=== PATIENT | male | born 1965 | race Caucasian/White ===

== ENCOUNTER 2023-10-23 14:34 | Emergency (ER) | payer BC ==
--- OUTSIDE RECORDS SUMMARY | 2023-10-23 14:38 | XMS REPORT | Continuity of Care Document ---
Author Name Unknown Address [address] [facility] [address] [place] [address] [facility] thconnect Address [address] [place] [address] Care Team Providers Care Aviculturist Name Role Phone Sheron Diego NP Primary Care Physician Sheron Shetty Attending Clinician Unavailable Selbst DPM, Ching Cortes Attending Clinician [phone] CHING OWENS Attending Clinician Unavail able Payers Payer Name Policy Type Policy Number Effective Date Expirati on Date Source [employer] COMM [id number] 2022 00:00:00 Allergies, Adverse Reactions, Alerts Allergy Name Allergy Type Status Severity Reaction(s) Onset Date Inactive Date Treating Clinician Comments Source ALLERGIE S NOT ON FILE SYSTEMIC Active MHEOUT NO KNOWN ALLERGIE S SYSTEMIC Active MHEOUT Social History Social Habit Start Date Stop Date Quantity Comments Source Gender identity [facility] Sexual orientation [facility] Smoking Status Start Date Stop Date Source Tobacco smoking consumption unknown [facility] Encounters Start Date/Time End Date/Time Encounter Type Admission Type Attending Clinicians Care Facility Care Department Encounter ID Source 2023-10-21 10:36:[address] [facility] [id number] [facility] 2023-06-17 08:38[facility] [id number] [facility] 2022-08-02 10:46:[address] [facility] [id number] [facility] 2022-06-18 14:02:[address] [facility] [id number] [facility] 2022-03-12 08:50:01 Outpatient MacySheron sumner [facility] [id number] [facility] 2022-01-28 15:08:01 [facility] [id number] [facility] 2021-12-19 07:35:[address] [facility] [id number] [facility] 2021-07-31 11:26:[address] [facility] [id number] [facility] 2021-03-21 14:38:[address] [facility] [id number] [facility] 2021-03-21 14:07:[address] [facility] [id number] [facility] 2021-03-21 13:57:[address] [facility] [id number] [facility] 2021-03-21 13:22:[address] [facility] [id number] [facility] 2023-10-06 12:50:00 2023-10-06 13:36:15 Consult Ching Owens [facility] [id number] Cristina Marino [facility] 2023-10-06 12:15:30 2023-10-06 13:36:15 Outpatient Elective CHING OWENS MHEOUT [id number] KATEEOUT Notes Date/Time Note Provider Source [id number] 15:19:00* Ching Owens [facility] - 10/06/2023 12:50 PM CDT CHIEF COMPLAINT: HYPERKERATOSIS, RIGHT SUB 1ST METATARSAL HEAD [facility] HISTORY OF PRESENT ILLNESS: Patient requesting evaluation of the lower extremity to help reduce chances of complications in the lower extremity due to multiple high risk comorbidities Patient states recurring painful hyperkeratosis for several years, right sub 1st metatarsal head, most recently starting approximately May 2023 Patient states nails are painful, thick, and elongated. Patient denies pain, infection, injury, open wounds Patient states most recent fasting blood sugar was tested yesterday, 130 mg/dl. OBJECTIVE: PHYSICAL EXAM OF THE LOWER EXTREMITY VASCULAR: (-) edema symmetrical to bilateral lower extremity (-) ecchymosis (-) erythema 2/4 Dorsal pedis pulse, bilateral 2/4 Posterior tibial pulse, bilateral (+) normal Capillary Refill time (+) varicosities, (+) pedal hair growth NEUROLOGICAL: (+) mixed sensation with 5.07 Bradford Idalia monofilament examination to the most distal lower extremity (-) tinel's sign (-) clonus present (+) normal response to hot, cold, sharp, blunted and vibratory sensations DERMATOLOGICAL: (+) hyperkeratosis, right plantar medial 1st metatarsal head (+) Nails are thick, yellow, elongated. Debrided without complications (-) open wounds (-) signs of infection (-) ischemic tissue (-) macerations (-) abscess (+) normal temperature when compared to contralateral limb (+) normal color, tugor, and elasticity MUSCULOSKELETAL: (-) pain on palpation, BILATERAL lower extremity (+) Semi-rigid hammertoe deformities, BILATERAL (-) other gross osseous abnormalities 5/5 muscle strength to extrinsic pedal muscle groups (-) evidence of compartment syndrome (-) evidence of deep vein thrombosis ASSESSMENT: Hyperkeratosis, right plantar medial 1st metatarsal head Onychomycosis, bilateral feet --- Hyperhidrosis, 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 - Edema - compression stockings advised - Shoes - patient educated to obtain appropriate shoes with custom inserts - Diabetic management - significant time discussing and educating the patient about appropriate diabetic management and care for the lower extremity. Patient also advised to follow-up with detailed regimen with PCP - Return 12 weeks for routine pedal care Patient advised to report to my clinic or the emergency room immediately with any questions or concerns. Patient Instructions: Discussion: A detailed discussion was provided to the patient with specific reference to etiology, pathology, alternate treatment options, and prognosis. All risks and complications (including side effects) with each treatment/medication alternative were outlined in detail including but not limited to: Pain, swelling, numbness,loss of function, loss of limb, bleeding, hematoma, scarring, failure to relieve condition, surgery, additional/revisional surgery, reflex sympathetic dystrophy, complex regional pain syndrome, reoccurrence of deformity, joint stiffness, flail toe, bone and/or soft tissue infection, blood clots, pulmonary embolism, possible ,delayed or non-healing. X-rays, graphs and drawings were all used to assist with patient comprehension when appropriate. All patients questions were answered and stated they fully understood. No guarantee as to results or outcome of treatment was made. I have discussed with the patient or legally responsible person prior to obtaining consent: the risks, potential benefits and drawbacks, significant alternatives, potential for problems related to recuperation, likelihood of success, and possible results of non-treatment, and the patient or the legally responsible person has agreed to proceed. [id number] 15:19[facility]00 [id number] 15:19:00 Diagnosis Abnormal foot finding - Law rios [facility] Fitz
[2023-10-23] MEDS ORDERED: LIDOCAINE 1% MPF 5 ML VIAL ONE (15:06)
--- NOTE | 2023-10-23 15:34 | ER ---
Nurse's Notes [facility] Name: Dennis Curry Age: 57 yrs Sex: Male : 1965 Arrival Date: 10/23/2023 Time: 14:34 Bed 18 Private MD: Diagnosis: Cutaneous abscess of back Presentation: 10/22 14:48 Chief complaint: Patient states: 3 abscess to back area for 2 weeks. One is red, ll1 swollen. and painful. No known fever. Coronavirus screen: Client denies travel out of the [place] in the last 14 days. At this time, the client does not indicate any symptoms associated with coronavirus-19. Ebola Screen: Patient denies travel to an Ebola-affected area in the 21 days before illness onset. Initial Sepsis Screen: Does the patient meet any 2 criteria? No. Patient's initial sepsis screen is negative. Does the patient have a suspected source of infection? No. Patient's initial sepsis screen is negative. Risk Assessment: Do you want to hurt yourself or someone else? Patient reports no desire to harm self or others. Onset of symptoms was October 09, 2023. 14:48 Method Of Arrival: Ambulatory ll1 14:48 Acuity: NEDA 4 ll1 Triage Assessment: 14:49 General: Appears uncomfortable, Behavior is calm, cooperative, appropriate for age. ll1 Pain: Complains of pain in back Pain currently is 4 out of 10 on a pain scale. Quality of pain is described as aching. Derm: Reports 3 abscess to back, 1 is red, swollen and tender. Historical: - Allergies: 14:47 No Known Allergies; ll1 - PMHx: 14:47 Diabetes mellitus; Hypertensive disorder; Hypercholesterolemia; ll1 - PSHx: 14:47 Appendectomy; Tonsillectomy; ll1 - Immunization history:: Adult Immunizations up to date. - Infectious Disease History:: Denies. - Social history:: Smoking status: Patient denies any tobacco usage or history of. - Family history:: not pertinent. Screenin:54 [facility] ED Fall Risk Assessment (Adult) History of falling in the last 3 months, dd2 including since admission No falls in past 3 months (0 pts) Confusion or Disorientation No (0 pts) Intoxicated or Sedated No (0 pts) Impaired Gait No (0 pts) Mobility Assist Device Used No (0 pt) Altered Elimination No (0 pt) Score/Fall Risk Level 0 - 2 = Low Risk Oriented to surroundings, Maintained a safe environment, Hourly rounding (assess needs \T\ fall precautionary measures) done. Abuse screen: Denies threats or abuse. Nutritional screening: No deficits noted. Tuberculosis screening: No symptoms or risk factors identified. Assessment: 14:54 General: Appears in no apparent distress. Behavior is calm, cooperative. Pain: dd2 Complains of pain in left subscapular area Pain currently is 3 out of 10 on a pain scale. Neuro: Level of Consciousness is awake, alert, obeys commands, Oriented to person, place, time, situation, Moves all extremities. Cardiovascular: No deficits noted. Denies chest pain. Respiratory: Airway is patent. GI: No deficits noted. No signs and/or symptoms were reported involving the gastrointestinal system. Abdomen is non-distended, Abd is soft and non tender. : No deficits noted. No signs and/or symptoms were reported regarding the genitourinary system. EENT: No deficits noted. No signs and/or symptoms were reported regarding the EENT system. Derm: Wound noted left subscapular area Wound is ABCESS TO LT MIDDLE BACK, NO DRAINAGE NOTED. Abscess located on left subscapular area is quarter sized, has no drainage, is raised. Musculoskeletal: No deficits noted. No signs and/or symptoms reported regarding the musculoskeletal system. Vital Signs: 14:48 BP 122 / 71; Pulse 89; Resp 18; Temp 97.9; Pulse Ox 96% on R/A; Weight 129.27 kg; ll1 Height 5 ft. 10 in. ; Pain 4/10; 15:46 BP 129 / 75; Pulse 85; Resp 16; Pulse Ox 97% ; tl4 14:48 Body Mass Index 40.89 (129.27 kg, 177.8 cm) ll1 14:48 Pain Scale: Adult ll1 ED Course: 14:38 Patient arrived in ED. mr 14:39 Lisandro Huerta MD is Attending Physician. rt 14:41 Arm band placed on Patient placed in an exam room, on a stretcher. ll1 14:43 DAYANA LOUISE RN is Primary Nurse. dd2 14:49 Triage completed. ll1 14:54 Patient has correct armband on for positive identification. Bed in low position. Call dd2 light in reach. Side rails up X 1. Provided Education on: CALL LIGHT, PROCEDURES. 14:54 Patient did not have IV access during this emergency room visit. dd2 15:46 Assist provider with I \T\ D:. tl4 Administered Medications: 15:06 Drug: Lidocaine Infiltration (1 %) 5 ml 5 ml Infiltration once; to bedside {Note: GIVEN tl4 BY DR. HUERTA.} Volume: 5 ml; Route: Infiltration; 15:21 Follow up: Response: No adverse reaction tl4 Medication: 14:54 VIS not applicable for this client. dd2 Outcome: 15:34 Discharge ordered by MD. rt 15:46 Discharged to home ambulatory, tl4 15:46 Condition: stable 15:46 Discharge instructions given to patient, Instructed on discharge instructions, follow up and referral plans. medication usage, Demonstrated understanding of instructions, follow-up care, medications, Prescriptions given X 1, 15:48 Patient left the ED. tl4 Signatures: Areli Sanchez, Reg Reg mr Debbi Reaves, RN RN ll1 Lisandro Huerta MD MD rt Baron Savage RN RN tl4 DAYANA LOUISE RN RN dd2
--- NOTE | 2023-10-23 15:34 | EDPHYS ---
Physician Documentation [facility] Name: Dennis Curry Age: 57 yrs Sex: Male : 1965 Arrival Date: 10/23/2023 Time: 14:34 Bed 18 Private MD: ED Physician Lisandro Huerta HPI: 10/22 16:19 This 57 yrs old Male presents to ER via Ambulatory with complaints of Cyst. rt 16:19 Patient presents to the ED with reported cyst with pain to the back for about 2 weeks. rt Denies drainage. Denies fever, chills. Denies other acute complaints at this time, symptoms are mild in severity, no other aggravating alleviating factors. Historical: - Allergies: 14:47 No Known Allergies; ll1 - PMHx: 14:47 Diabetes mellitus; Hypertensive disorder; Hypercholesterolemia; ll1 - PSHx: 14:47 Appendectomy; Tonsillectomy; ll1 - Immunization history:: Adult Immunizations up to date. - Infectious Disease History:: Denies. - Social history:: Smoking status: Patient denies any tobacco usage or history of. - Family history:: not pertinent. ROS: 16:19 Constitutional: Negative for fever, chills, and weight loss, Cardiovascular: Negative rt for chest pain, palpitations, and edema, Respiratory: Negative for shortness of breath, cough, wheezing, and pleuritic chest pain, Abdomen/GI: Negative for abdominal pain, nausea, vomiting, diarrhea, and constipation, Neuro: Negative for headache, weakness, numbness, tingling, and seizure, 16:19 Skin: Positive for abscess, Negative for cellulitis, Exam: 16:19 Constitutional: This is a well developed, well nourished patient who is awake, alert, rt and in no acute distress. Head/Face: Normocephalic, atraumatic. Chest/axilla: Normal chest wall appearance and motion. Nontender with no deformity. No lesions are appreciated. Cardiovascular: Regular rate and rhythm with a normal S1 and S2. No gallops, murmurs, or rubs. Normal PMI, no JVD. No pulse deficits. Respiratory: Lungs have equal breath sounds bilaterally, clear to auscultation and percussion. No rales, rhonchi or wheezes noted. No increased work of breathing, no retractions or nasal flaring. Abdomen/GI: Soft, non-tender, with normal bowel sounds. No distension or tympany. No guarding or rebound. No evidence of tenderness throughout. 16:19 Skin: Parent 2 cm cyst versus abscess on the mid back left of midline. Vital Signs: 14:48 BP 122 / 71; Pulse 89; Resp 18; Temp 97.9; Pulse Ox 96% on R/A; Weight 129.27 kg; ll1 Height 5 ft. 10 in. ; Pain 4/10; 15:46 BP 129 / 75; Pulse 85; Resp 16; Pulse Ox 97% ; tl4 14:48 Body Mass Index 40.89 (129.27 kg, 177.8 cm) ll1 14:48 Pain Scale: Adult ll1 Procedures: 16:19 I \T\ D: Incision and drainage was performed for an abscess of the back Prepped with rt Betadine, Anesthetized with 2 ml's 1% Lidocaine. Incised with #11 blade. Drained moderate amount purulent fluid. Dressing: sterile 4x4 gauze, the patient tolerated the procedure well. MDM: 14:51 Patient medically screened. rt 16:19 Differential Diagnosis Cyst, abscess, lipoma. Data reviewed: vital signs, nurses notes. rt Test considered but Not performed: Other Details Stable vital signs, apparently complicated abscess, labs, CT not indicated.. Care significantly affected by the following chronic conditions: Diabetes. Response to treatment: the patient's symptoms have markedly improved after treatment. 10/22 15:01 Order name: I\T\D Setup; Complete Time: 15:10 rt Administered Medications: 15:06 Drug: Lidocaine Infiltration (1 %) 5 ml 5 ml Infiltration once; to bedside {Note: GIVEN tl4 BY DR. HUERTA.} Volume: 5 ml; Route: Infiltration; 15:21 Follow up: Response: No adverse reaction tl4 Disposition Summary: 10/23/23 15:34 Discharge Ordered Notes: Location: Home rt Problem: new rt Symptoms: have improved rt Condition: Stable rt Diagnosis - Cutaneous abscess of back rt Followup: rt - With: Private Physician - When: 2 - 3 days - Reason: Discharge Instructions: - Discharge Summary Sheet rt - Skin Abscess rt Forms: - Medication Reconciliation Form rt - Antibiotic Education rt - Prescription Opioid Use rt - Patient Portal Instructions rt - Leadership Thank You Letter rt Prescriptions: - Doxycycline Hyclate 100 mg Oral Tablet - take 1 tablet ORAL route every 12 hours; 20 tablet; Refills: 0, Product rt Selection Permitted Signatures: Debbi Reaves RN RN ll1 Lisandro Huerta MD MD rt Baron Savage RN RN tl4 DAYANA LOUISE RN RN dd2
[2023-10-23 15:58] VITALS: BP 129/75; TEMP 97.9; O2SAT 97
== END 2023-10-23 15:48 | disposition home or self-care (01) ==
LOC: ER 14:34
PROC: 0H96XZZ Drainage of Back Skin, External Approach (ICD-10-PCS; principal; 2023-10-23)
DX: L02.212 Cutaneous abscess of back [any part, except buttock and flank] (principal)
CPT/HCPCS: 99283; 10060; J2001